=== PATIENT | female | born 1950 | race Caucasian/White ===

== ENCOUNTER → 2017-09-10 00:09 | Outpatient (CLI) | payer MEDICARE, BC, SELFPAY ==
--- NOTE | 2017-09-10 10:22 | DI.RPTCT_ITS ---
SYMPTOM/DIAGNOSIS: STAGE IV COLON CA, ON CHEMOTHERAPY, METS TO LIVER C18.9, C78.7, RESTAGING CT SCAN CHEST, ABDOMEN AND PELVIS: CT scan of the chest, abdomen and pelvis was performed according to protocol Comparison is 06/26/17. CT ABDOMEN AND PELVIS: There are again seen hepatic masses present. The largest is in the right lobe of the liver superiorly. It measures 7.9 cm AP x 6.1 cm on the current examination. This compares with 8.4 cm AP x 6.7 cm transverse from 06/26/17. The next largest lesion is seen in the anterior segment of the right lobe of the liver more caudally and measures 4.1 cm AP x 3.7 cm transverse. This compares with 4.6 cm AP x 4 cm transverse on the prior examination. No new hepatic lesions are identified. The portal and superior mesenteric veins are patent. The gallbladder is negative by CT criteria. No biliary ductal dilatation is present. The pancreas and peripancreatic soft tissues are unremarkable as is the spleen. There is no evidence of an adrenal mass. The kidneys show normal and symmetric enhancement. There are stable tiny hypodensities seen in the kidneys bilaterally. They are too small for further characterization but may represent small cysts. The urinary bladder is intact. The reproductive organs are grossly unremarkable except for calcified areas in the uterus likely reflecting fibroids. There is mild atherosclerosis of the abdominal aorta but no aneurysmal dilatation is present. No significant abdominal or pelvic adenopathy or pneumoperitoneum is seen. There is a small amount of free fluid in the pelvis. There is a large amount of stool in the colon, but no evidence of bowel obstruction or inflammation. Moderate degenerative changes are seen throughout the lumbar spine. No suspicious lytic or sclerotic lesions are identified in the pelvis or lumbar spine. There is a small fat containing umbilical hernia. IMPRESSION: Interval decrease in size of the two largest hepatic lesions since 06/26/17. CT SCAN CHEST: Findings: The thyroid gland appears enlarged and lobulated with hypodense masses present. Non-emergent thyroid ultrasound may be obtained if clinically appropriate. The thoracic aorta is of normal caliber. Heart size is within normal limits. No significant pericardial effusion seen. No significant mediastinal or hilar adenopathy is present. No significant axillary or supraclavicular adenopathy is seen on this examination. No pleural effusion is identified. There is a stable 1.1 cm lymph node in the right peritracheal lesion. There is 3 mm noncalcified pulmonary nodule in the right lower lobe (Series 7, image 348). This is unchanged compared to prior examinations. N No other pulmonary nodules are seen. No pneumothorax is identified. The tracheal bronchial tree is unremarkable. No pulmonary infiltrates are seen. No suspicious lytic or sclerotic lesions are seen in the bones. IMPRESSION: Stable tiny 3 mm noncalcified pulmonary nodule in the right lower lobe. No findings to suggest intrathoracic metastatic disease.
[2017-09-10] MEDS: Omnipaque 350 MG/ML 100 ML BTL IJ (10:24)
== END ==
PROVIDERS: Visit Provider Internal Medicine Hematology & Oncology
DX: C18.9 Malignant neoplasm of colon, unspecified (principal); C78.7 Secondary malignant neoplasm of liver and intrahepatic bile duct; R91.8 Other nonspecific abnormal finding of lung field; E04.9 Nontoxic goiter, unspecified
CPT/HCPCS: 71260; 74177; J3490

== ENCOUNTER → 2017-10-08 02:54 | Outpatient (RCR) | payer MEDICARE, BC, SELFPAY ==
[2017-09-10] MEDS: Heparin 500 UNITS/5 ML SYRINGE IV (08:30)
[2017-09-10] MEDS: Normal Saline Flush 10 ML SYR IVP (08:30)
[2017-09-10 08:57] LABS: CREATININE 0.84 mg/dL (0.55-1.02)
[2017-09-17] MEDS: Heparin 500 UNITS/5 ML SYRINGE IV (08:34)
[2017-09-17] MEDS: Normal Saline Flush 10 ML SYR IVP (08:34)
[2017-09-17 08:50] LABS: Abs Immature Grans 0.17 k/cumm (0.0-0.09); Absolute Basophil Count 0.03 k/cumm (0.0-0.2); Absolute Eosinophil Count 0.38 k/cumm (0.0-0.7); Absolute Lymphocyte Count 1.86 k/cumm (1.2-3.4); Absolute Monocyte Count 0.79 k/cumm (0.11-0.7); Absolute Neutrophil Count 8.32 k/cumm (1.2-6.7); Basophils % 0.3; Eosinophils % 3.3; HCT 34.1 % (36.0-46.0); HGB 10.8 g/dL (12.0-15.5); Immature Grans % 1.5; Lymphocytes % 16.1; Mean Corp. HGB Concentration 31.7 g/dL (32.0-36.0); Mean Corpuscular Volume 82.2 fL (80-95); Mean Platelet Volume 8.6 fL (8.0-11.0); Monocytes % 6.8; Platelet Count 309 x1000/uL (130-400); RBC 4.15 m/cumm (4.00-5.20); RBC Distribution Width 18.5 % (11.7-14.6); White Blood Cell Count 11.56 k/cumm (4.4-10.8)
[2017-09-17 09:09] LABS: ALT 35 U/L (12-78); AST 17 U/L (15-37); Albumin 3.9 g/dL (3.4-5.0); Alkaline Phosphatase 169 U/L (46-116); Anion Gap 11.1 mmol/L (3-11); BUN 22 mg/dL (7-18); Bilirubin, Total 0.4 mg/dL (0.2-1.0); CO2 23.9 mmol/L (21.0-32.0); CREATININE 0.94 mg/dL (0.55-1.02); Calcium 9.7 mg/dL (8.5-10.1); Chloride 103 mmol/L (98-107); Estimated GFR 59.22 (mL/min/1.73m2); Glucose 105 mg/dL (70-100); Potassium 4.1 mmol/L (3.5-5.1); Sodium 138 mmol/L (136-145); Total Protein 7.5 g/dL (6.4-8.2)
[2017-09-20 09:42] LABS: CEA 1.2 ng/ml
[2017-10-08] MEDS: Heparin 500 UNITS/5 ML SYRINGE IV (12:05)
[2017-10-08] MEDS: Normal Saline Flush 10 ML SYR IVP (12:05)
[2017-10-08 12:29] LABS: Abs Immature Grans 0.27 k/cumm (0.0-0.09); Absolute Basophil Count 0.05 k/cumm (0.0-0.2); Absolute Eosinophil Count 0.74 k/cumm (0.0-0.7); Absolute Lymphocyte Count 2.83 k/cumm (1.2-3.4); Absolute Neutrophil Count 10.41 k/cumm (1.2-6.7); Basophils % 0.3; Eosinophils % 4.9; HCT 35.4 % (36.0-46.0); Immature Grans % 1.8; Lymphocytes % 18.6; Mean Corp. HGB Concentration 31.1 g/dL (32.0-36.0); Mean Corpuscular Hemoglobin 25.5 pg (27.0-33.0); Mean Corpuscular Volume 82.1 fL (80-95); Mean Platelet Volume 9.1 fL (8.0-11.0); Monocytes % 5.9; Neutrophils % 68.5; Platelet Count 336 x1000/uL (130-400); RBC 4.31 m/cumm (4.00-5.20); RBC Distribution Width 18.6 % (11.7-14.6)
[2017-10-08 12:37] LABS: ALT 35 U/L (12-78); AST 19 U/L (15-37); Alkaline Phosphatase 182 U/L (46-116); Anion Gap 6.9 mmol/L (3-11); BUN 19 mg/dL (7-18); Bilirubin, Total 0.4 mg/dL (0.2-1.0); CO2 26.1 mmol/L (21.0-32.0); CREATININE 1.03 mg/dL (0.55-1.02); Calcium 9.7 mg/dL (8.5-10.1); Chloride 102 mmol/L (98-107); Estimated GFR 53.29 (mL/min/1.73m2); Glucose 86 mg/dL (70-100); Sodium 135 mmol/L (136-145); Total Protein 7.6 g/dL (6.4-8.2)
[2017-10-11 11:23] LABS: CEA 1.1 ng/ml
== END ==
LOC: INF 09-10 00:29
PROVIDERS: Visit Provider Internal Medicine Hematology & Oncology
DX: C18.9 Malignant neoplasm of colon, unspecified (principal); C78.7 Secondary malignant neoplasm of liver and intrahepatic bile duct; R91.8 Other nonspecific abnormal finding of lung field; E04.9 Nontoxic goiter, unspecified; Z45.2 Encounter for adjustment and management of vascular access device; R11.2 Nausea with vomiting, unspecified; T50.905A Adverse effect of unspecified drugs, medicaments and biological substances, initial encounter
CPT/HCPCS: 36591 ×2; 71260; 74177; 80053; 81003; 82378; 82565; 85025; J3490

== ENCOUNTER 2017-10-22 00:41 | Outpatient (RCR) | payer MEDICARE, BC, SELFPAY ==
[2017-10-22] MEDS: Normal Saline Flush 10 ML SYR IVP (13:30)
[2017-10-22] MEDS: Heparin 500 UNITS/5 ML SYRINGE IV (13:31)
[2017-10-22 13:53] LABS: Abs Immature Grans 0.15 k/cumm (0.0-0.09); Absolute Basophil Count 0.04 k/cumm (0.0-0.2); Absolute Eosinophil Count 0.24 k/cumm (0.0-0.7); Absolute Monocyte Count 0.95 k/cumm (0.11-0.7); Basophils % 0.3; Eosinophils % 1.9; HCT 30.2 % (36.0-46.0); HGB 9.6 g/dL (12.0-15.5); Lymphocytes % 19.6; Mean Corp. HGB Concentration 31.8 g/dL (32.0-36.0); Mean Corpuscular Hemoglobin 25.9 pg (27.0-33.0); Mean Corpuscular Volume 81.6 fL (80-95); Mean Platelet Volume 8.8 fL (8.0-11.0); Monocytes % 7.7; Neutrophils % 69.3; Platelet Count 294 x1000/uL (130-400); RBC Distribution Width 18.9 % (11.7-14.6); White Blood Cell Count 12.37 k/cumm (4.4-10.8)
[2017-10-22 14:06] LABS: ALT 47 U/L (12-78); AST 23 U/L (15-37); Absolute Lymphocyte Count 2.42 k/cumm (1.2-3.4); Absolute Neutrophil Count 8.57 k/cumm (1.2-6.7); Albumin 3.8 g/dL (3.4-5.0); Alkaline Phosphatase 219 U/L (46-116); Anion Gap 8.7 mmol/L (3-11); BUN 12 mg/dL (7-18); Bilirubin, Total 0.4 mg/dL (0.2-1.0); CO2 26.3 mmol/L (21.0-32.0); CREATININE 0.92 mg/dL (0.55-1.02); Calcium 9.1 mg/dL (8.5-10.1); Chloride 102 mmol/L (98-107); Glucose 93 mg/dL (70-100); Potassium 3.5 mmol/L (3.5-5.1); Sodium 137 mmol/L (136-145); Total Protein 7.2 g/dL (6.4-8.2)
[2017-10-22 14:08] LABS: Diff Comment Agrees w/ Instrument; Polychromasia Present
[2017-10-25 10:41] LABS: CEA 0.9 ng/ml
== END 2017-11-07 23:59 | disposition home or self-care (01) ==
LOC: INF 00:41
PROVIDERS: Visit Provider Internal Medicine Hematology & Oncology
DX: C18.9 Malignant neoplasm of colon, unspecified (principal); C78.7 Secondary malignant neoplasm of liver and intrahepatic bile duct; Z45.2 Encounter for adjustment and management of vascular access device
CPT/HCPCS: 36591; 80053; 82378; 85025

== ENCOUNTER 2017-11-12 01:53 | Outpatient (RCR) | payer MEDICARE, BC, SELFPAY ==
[2017-11-12] MEDS: Heparin 500 UNITS/5 ML SYRINGE IV (13:45)
[2017-11-12] MEDS: Normal Saline Flush 10 ML SYR IVP (13:45)
[2017-11-12 14:25] LABS: HCT 34.1 % (36.0-46.0); HGB 10.8 g/dL (12.0-15.5); Mean Corp. HGB Concentration 31.7 g/dL (32.0-36.0); Mean Corpuscular Hemoglobin 25.9 pg (27.0-33.0); Mean Corpuscular Volume 81.8 fL (80-95); Mean Platelet Volume 8.8 fL (8.0-11.0); Platelet Count 325 x1000/uL (130-400); RBC 4.17 m/cumm (4.00-5.20); RBC Distribution Width 20.2 % (11.7-14.6); White Blood Cell Count 13.56 k/cumm (4.4-10.8)
[2017-11-12 14:34] LABS: Bilirubin Negative (Negative); Blood Negative (Negative); Clarity Clear; Glucose Negative (Negative); Ketones Negative (Negative); Leukocyte Esterase Negative (Negative); Nitrite Negative (Negative); Specific Gravity 1.015 (1.005-1.025); Urobilinogen 0.2 EU/dL (Up TO 0.2)
[2017-11-12 14:42] LABS: ALT 52 U/L (12-78); AST 23 U/L (15-37); Albumin 3.6 g/dL (3.4-5.0); Alkaline Phosphatase 192 U/L (46-116); Anion Gap 10.4 mmol/L (3-11); BUN 16 mg/dL (7-18); Bilirubin, Total 0.4 mg/dL (0.2-1.0); CO2 23.6 mmol/L (21.0-32.0); CREATININE 0.81 mg/dL (0.55-1.02); Calcium 9.4 mg/dL (8.5-10.1); Chloride 103 mmol/L (98-107); Glucose 93 mg/dL (70-100); Sodium 137 mmol/L (136-145); Total Protein 7.1 g/dL (6.4-8.2)
[2017-11-12 14:45] LABS: Absolute Lymphocyte Count 2.31 k/cumm (1.2-3.4); Absolute Monocyte Count 0.68 k/cumm (0.11-0.7); Absolute Neutrophil Count 10.31 k/cumm (1.2-6.7)
[2017-11-12 14:46] LABS: Absolute Eosinophil Count 0.14 k/cumm (0.0-0.7); Anisocytosis 2+; Diff Comment Manual Differential; Hypochromasia 1+; Microcytosis 1+; Polychromasia Present
[2017-11-12 14:47] LABS: Poikilocytes 1+
[2017-11-15 11:02] LABS: CEA 0.8 ng/ml
== END 2017-12-08 23:59 | disposition home or self-care (01) ==
LOC: INF 01:53
PROVIDERS: Visit Provider Internal Medicine Hematology & Oncology
DX: C18.9 Malignant neoplasm of colon, unspecified (principal); C78.7 Secondary malignant neoplasm of liver and intrahepatic bile duct; E87.6 Hypokalemia; R11.2 Nausea with vomiting, unspecified; T50.905A Adverse effect of unspecified drugs, medicaments and biological substances, initial encounter
CPT/HCPCS: 36415; 36591; 80053; 81003; 82378; 85025